=== PATIENT | female | born 1960 | race Caucasian/White ===

== ENCOUNTER 2023-12-26 13:54 | Emergency (ER) | payer OTHER ==
--- NOTE | 2023-12-26 14:53 | ED ---
General Adult HPI - General Chief complaint: Fall Stated complaint: Fall- L sided rib pain Time Seen by Provider: 12/26/23 14:38 Source: patient, RN notes reviewed Mode of arrival: ambulatory Limitations: no limitations - History of Present Illness Initial comments: 63-year-old female presents to the emergency department for evaluation of left- sided chest wall pain following a fall. Patient states that she tripped earlier today and landed on both of her hands. She states that when she arrived at home she noticed some pain in her ribs on the left side. She states that she does not recall hitting her chest when she fell. She states that she possibly hit her side with her elbow. She reports that the pain is worse with twisting movement and lifting her hands above her head. She also reports pain in her right hand. She denies any symptoms preceding the fall including chest pain, shortness of breath, lightheadedness. - Related Data Allergies Allergy/AdvReac Type Severity Reaction Status Date / Time cheese AdvReac Itching Verified 12/26/23 14:22 chocolate AdvReac Itching Verified 12/26/23 14:22 corn AdvReac Itching Verified 12/26/23 14:22 wheat AdvReac Itching Verified 12/26/23 14:22 Review of Systems ROS Statement: Those systems with pertinent positive or pertinent negative responses have been documented in the HPI. ROS Other: All systems not noted in ROS Statement are negative. Past Medical History Past Medical History: GERD/Reflux, Hyperlipidemia Additional Past Medical History / Comment(s): elongated QT many years ago. History of Any Multi-Drug Resistant Organisms: None Reported Past Surgical History: Cholecystectomy Additional Past Surgical History / Comment(s): breast lump removal Past Psychological History: Anxiety Smoking Status: Never smoker Past Alcohol Use History: Occasional, Rare Past Drug Use History: None Reported General Exam Limitations: no limitations General appearance: alert, in no apparent distress Head exam: Present: atraumatic, normocephalic, normal inspection Eye exam: Present: normal appearance, PERRL, EOMI. Absent: scleral icterus, conjunctival injection, periorbital swelling ENT exam: Present: normal exam, mucous membranes moist Respiratory exam: Present: normal lung sounds bilaterally, chest wall tenderness. Absent: respiratory distress, wheezes, rales, rhonchi, stridor Cardiovascular Exam: Present: regular rate, normal rhythm, normal heart sounds. Absent: systolic murmur, diastolic murmur, rubs, gallop, clicks GI/Abdominal exam: Present: soft. Absent: distended, tenderness, guarding, rebound, rigid Extremities exam: Present: full ROM, normal capillary refill, other (radial pulses 2+, ecchymosis over right thenar area). Absent: tenderness, pedal edema, joint swelling, calf tenderness Back exam: Present: normal inspection Neurological exam: Present: alert, oriented X3 Psychiatric exam: Present: normal affect, normal mood Skin exam: Present: warm, dry, intact, normal color. Absent: rash Course Vital Signs 12/26/23 12/26/23 14:17 16:11 Temperature 98.7 F 98.1 F Pulse Rate 98 84 Respiratory 18 16 Rate Blood Pressure 166/90 150/84 O2 Sat by Pulse 98 97 Oximetry Medical Decision Making - Medical Decision Making Was pt. sent in by a medical professional or institution (, PA, MANAGER DRUG, urgent care, hospital, or jail...) When possible be specific @ -No Did you speak to anyone other than the patient for history (EMS, parent, family, police, friend...)? What history was obtained from this source @ -No Did you review nursing and triage notes (agree or disagree)? Why? @ -I reviewed and agree with nursing and triage notes Were old charts reviewed (outside hosp., previous admission, EMS record, old EKG, old radiological studies, urgent care reports/EKG's, jail records)? Report findings @ -No old charts were reviewed Differential Diagnosis (chest pain, altered mental status, abdominal pain women, abdominal pain men, vaginal bleeding, weakness, fever, dyspnea, syncope, headache, dizziness, GI bleed, back pain, seizure, CVA, palpatations, mental health, musculoskeletal)? @ -Differential Chest Pain: Stable Angina, Unstable Angina, STEMI, NSTEMI Aortic Dissection, Pneumothorax, Musculoskeletal, Esophageal Spasm GERD, Cholecystitis, Pancreatitis, Zoster, this is not meant to be an all-inclusive list. EKG interpreted by me (3pts min.). @ -EKG at 1509 shows sinus rhythm rate 88, MA 132, QRS 84, QT/QTc [id number] X-rays interpreted by me (1pt min.). @ -N chest x-ray and rib x-ray reveals no notable rib fractures X-ray of the right hand shows possible avulsion fracture of the base of the right second digit middle phalanx CT interpreted by me (1pt min.). @ -None done U/S interpreted by me (1pt. min.). @ -None done What testing was considered but not performed or refused? (CT, X-rays, U/S, labs)? Why? @ -None What meds were considered but not given or refused? Why? @ -None Did you discuss the management of the patient with other professionals (professionals i.e. , PA, MANAGER DRUG, lab, RT, psych nurse, social sciences instructor, coke oven patcher, teacher, coastal/harbor defense officer, continuous pillowcase cutter)? Give summary @ -No Was smoking cessation discussed for >3mins.? @ -No Was critical care preformed (if so, how long)? @ -No Were there social determinants of health that impacted care today? How? (Homelessness, low income, unemployed, alcoholism, drug addiction, transportation, low edu. Level, literacy, decrease access to med. care, fpc, rehab)? @ -No Was there de-escalation of care discussed even if they declined (Discuss DNR or withdrawal of care, Hospice)? DNR status @ -No What co-morbidities impacted this encounter? (DM, HTN, Smoking, COPD, CAD, Cancer, CVA, ARF, Chemo, Hep., AIDS, mental health diagnosis, sleep apnea, morbid obesity)? @ -None Was patient admitted / discharged? Hospital course, mention meds given and route, prescriptions, significant lab abnormalities, going to OR and other pertinent info. @ -Discharge. Patient presented to the emergency department for evaluation of left-sided chest wall pain following a fall. EKG obtained revealing no acute T wave abnormalities. x-ray of the left-sided ribs reveals no acute fracture. X- ray of the right hand shows possible second digit middle phalanx avulsion fracture. Patient does not have any tenderness in this region. She does have anatomical snuffbox tenderness. She is placed in a splint and advised follow-up to her primary care provider. Advised symptomatic treatment at this time. She is understanding agreeable plan. Patient stable at time of discharge. Case discussed with Dr. Cam. Undiagnosed new problem with uncertain prognosis? @ -No Drug Therapy requiring intensive monitoring for toxicity (Heparin, Nitro, Insulin, Cardizem)? @ -No Were any procedures done? @ -No Diagnosis/symptom? @ -Fall, rib contusion, anatomical snuffbox tenderness Acute, or Chronic, or Acute on Chronic? @ -Acute Uncomplicated (without systemic symptoms) or Complicated (systemic symptoms)? @ -Uncomplicated Side effects of treatment? @ -No Exacerbation, Progression, or Severe Exacerbation? @ -No Poses a threat to life or bodily function? How? (Chest pain, [place], [place], pneumonia, PE, COPD, DKA, ARF, appy, cholecystitis, CVA, Diverticulitis, Homicidal, Suicidal, threat to staff... and all critical care pts) @ -No Disposition Clinical Impression: Fall, Tenderness of anatomical snuffbox, Rib pain on left side Disposition: HOME SELF-CARE Condition: Stable Instructions (If sedation given, give patient instructions): Fall Prevention (ED) Additional Instructions: Please follow up with your primary care provider. Return to the emergency department for new or worsening symptoms. Is patient prescribed a controlled substance at d/c from ED?: No Referrals: Nonstaff,Physician [Primary Care Provider] - 1-2 days Cindy Bellamy DO [Doctor of Osteopathic Medicine] - 1-2 days
--- NOTE | 2023-12-26 15:28 | XR ---
EXAMINATION TYPE: XR hand complete RT DATE OF EXAM: 12/26/2023 3:05 PM COMPARISON: None CLINICAL INDICATION: Female, 63 years old with history of fall; [facility] TECHNIQUE: XR hand complete RT Frontal, lateral and oblique views were obtained. FINDINGS/IMPRESSION: 1. Possible avulsion injury of the second digit middle phalanx base dorsally. Correlate with point t enderness there. No additional evidence for fracture. 2. Hyperflexion of the third digit proximal interphalangeal joint. 3. Mild multifocal degeneration changes of the joints of the hand with joint space narrowing and ost eophyte formation. [facility], , 12/26/2023 3:26 PM
--- NOTE | 2023-12-26 15:29 | XR ---
EXAMINATION TYPE: XR ribs LT w pa chest xray DATE OF EXAM: 12/26/2023 3:05 PM COMPARISON: None CLINICAL INDICATION: Female, 63 years old with history of fall; [facility] TECHNIQUE: XR ribs LT w pa chest xray; Frontal and oblique views of the ribs with frontal chest radio graph. FINDINGS: The ribs have a normal appearance. No evidence of fracture. Overall, the lungs are clear. The cardiac silhouette is normal in size. The remaining osseous structures are intact. IMPRESSION: No definitive displaced rib fractures. [facility], , 12/26/2023 3:27 PM
[2023-12-26 16:13] VITALS: BP 150/84; PULSE 84; RESP 16; TEMP 98.1
== END 2023-12-26 16:13 | disposition home or self-care (01) ==
LOC: EC 13:54
DX: S20.212A Contusion of left front wall of thorax, initial encounter (principal); Z91.018 Allergy to other foods; W01.0XXA Fall on same level from slipping, tripping and stumbling without subsequent striking against object, initial encounter
CPT/HCPCS: 93005; 99283